=== PATIENT | female | born 1985 | race Caucasian/White ===

== ENCOUNTER 2018-10-09 09:30 | Inpatient (IN) | payer OTHER ==
[2018-10-09] MEDS ORDERED: Calcium Gluc 4.6 MEQ/10 ML (100 MG/ML) SLOW IVP PRN (13:03)
[2018-10-09] MEDS ORDERED: Ibuprofen 800 MG TAB PO PRN (13:03)
[2018-10-09] MEDS ORDERED: Meperidine HCl/PF 25 MG/ML VIAL IM/IV PRN (13:03)
[2018-10-09] MEDS ORDERED: HYDROcodone/Acetaminophen 5/325 mg Tablet PO PRN (13:03)
[2018-10-09] MEDS ORDERED: Acetaminophen 500 MG TAB PO PRN (13:03)
[2018-10-09] MEDS ORDERED: Methylergonovine 0.2 MG/ML VIAL IM PRN (13:03)
[2018-10-09] MEDS ORDERED: Butorphanol Tartrate 1 MG/ML VIAL SLOW IVP PRN (13:03)
[2018-10-09] MEDS ORDERED: Promethazine HCl 25 MG/ML VIAL IM PRN (13:03)
[2018-10-09] MEDS ORDERED: Ondansetron PF 4 MG/2 ML Vial IVP PRN (13:03)
[2018-10-09] MEDS ORDERED: Lidocaine 1% (PF) 30 ML VIAL SC PRN (13:03)
[2018-10-09] MEDS ORDERED: Carboprost 250 MCG/ML AMP IM PRN (13:03)
[2018-10-09] MEDS ORDERED: Misoprostol 200 MCG TAB PR PRN (13:03)
[2018-10-09] MEDS ORDERED: Magnesium Sulfate 20 GM/WATER 500 ML BAG IVPB SCH (13:15)
[2018-10-09 13:18] VITALS: BMI 30.4
[2018-10-09] MEDS: Lactated Ringer's 1,000 ML IV SCH ×2 (13:20→22:05)
[2018-10-09] MEDS: Labetalol HCl 100 MG/20 ML VIAL SLOW IVP PRN ×2 (13:51→17:04)
[2018-10-09] MEDS: Magnesium Sulfate 20 gm/500 ml 20 GM/500 ML BAG IVPB SCH ×2 (13:51→22:05)
[2018-10-09 13:53] LABS: Hemoglobin 13.6 g/dL (12.0-16.0); Mean Corpuscular HGB CONC 34.1 g/dL (32.0-36.0); Mean Corpuscular Hemoglobin 29.5 pg (27.0-31.0); Mean Corpuscular Volume 86.7 fL (78.0-98.0); Mean Platelet Volume 11.7 fL (7.4-10.4); Platelet Count 129 thou/uL (130-400); RBC Distribution Width 11.7 % (11.5-14.5); Red Blood Cell (RBC) Count 4.62 mill/uL (4.20-5.40); White Blood Cell (WBC) Count 13.2 thou/uL (4.8-10.8)
[2018-10-09 14:01] LABS: ALT (SGPT) 35 U/L (8-55); AST (SGOT) 29 U/L (5-34); Albumin 3.1 g/dL (3.5-5.0); Alkaline Phosphatase 253 U/L (40-150); Anion Gap 13 mmol/L (10-20); BUN (Urea Nitrogen) 9 mg/dL (7.0-18.7); Bilirubin, Total 0.4 mg/dL (0.2-1.2); Calc. Creatinine Clearance 158 mL/min (70-130); Calcium 8.6 mg/dL (7.8-10.44); Carbon Dioxide 21 mmol/L (22-29); Chloride 103 mmol/L (98-107); Estimated GFR-MDRD Greater than 90; Globulin 2.6 g/dL (2.4-3.5); Glucose 97 mg/dL (70-105); Potassium 3.9 mmol/L (3.5-5.1); Protein, Total 5.7 g/dL (6.0-8.3); Sodium 133 mmol/L (136-145)
[2018-10-09 14:18] LABS: Syphilis Antibody Nonreactive (Nonreactive); Syphilis Antibody Index 0.02 S/CO (<1.00 Non-Reactive)
[2018-10-09 14:34] LABS: HBSAg Index 0.24 S/CO (0-0.99); Hep B Surf Ag Non-Reactive S/CO (NonReactive)
[2018-10-09] MEDS ORDERED: hydrALAZINE 20 MG/ML VIAL ONE (17:38)
[2018-10-09] MEDS ORDERED: hydrALAZINE 20 MG/ML VIAL SLOW IVP SCH (18:15)
[2018-10-10] MEDS ORDERED: Lidocaine 1% (PF) 30 ML VIAL ONE (00:09)
[2018-10-10] MEDS: hydrALAZINE 20 MG/ML VIAL SLOW IVP PRN ×2 (01:25→21:00)
[2018-10-10] MEDS ORDERED: Fentanyl 4 mcg/Bup 0.1% Cadd 100 ML ONE ×4 (03:03→21:29)
[2018-10-10] MEDS: NS w/ Oxytocin 10 units 500 ML IV SCH ×2 (03:31→12:54)
[2018-10-10] MEDS ORDERED: Naloxone HCl 0.4 mg/ml Vial IVP PRN ×2 (03:53)
[2018-10-10] MEDS ORDERED: Lactated Ringer's 500 ML IV PRN (03:53)
[2018-10-10] MEDS ORDERED: Hydrocerin (Eucerin) Cream 120 gm Jar TOP PRN (03:53)
[2018-10-10] MEDS ORDERED: Ondansetron PF 4 MG/2 ML Vial IVP PRN (03:53)
[2018-10-10] MEDS ORDERED: diphenhydrAMINE 50 MG/ML VIAL IVP PRN (03:53)
[2018-10-10] MEDS ORDERED: ePHEDrine/0.9% NaCl/PF SYRINGE 50 mg/10 ml SLOW IVP PRN (03:53)
[2018-10-10] MEDS ORDERED: Promethazine HCl 25 MG/ML VIAL IM PRN (03:53)
[2018-10-10] MEDS: Lactated Ringer's 1,000 ML IV SCH ×2 (03:58→17:05)
[2018-10-10] MEDS ORDERED: Communication Order-Pharmacy FS SCH (04:00)
[2018-10-10] MEDS: Acetaminophen 325 MG TAB PO PRN ×2 (06:54→15:36)
[2018-10-10] MEDS: Magnesium Sulfate 20 gm/500 ml 20 GM/500 ML BAG IVPB SCH ×2 (07:56→17:05)
[2018-10-10] MEDS: Fentanyl 4 mcg/Bupivacaine 0.1% Cassette 100 ML EPIDURAL SCH ×2 (10:25→16:37)
--- NOTE | 2018-10-10 14:26 | PDOC.LDPN ---
Labor & Delivery Progress Note - Subjective Subjective: comfortable - Objective Vital signs reviewed and normal: yes General: NAD, resting Uterine fundus: non tender Dilation: 6 Effacement: 75% Station: -1 FHT: category 1 [place] contractions every: 2-6 minutes - Assessment (1) Severe pre-eclampsia Code(s): O14.10 - SEVERE PRE-ECLAMPSIA, UNSPECIFIED TRIMESTER Current Visit: Yes Status: Acute (2) Term Code(s): Z34.80 - ENCOUNTER FOR SUPRVSN OF NORMAL , UNSP TRIMESTER Current Visit: Yes Status: Acute Plan: continue plan of care (Doing well on magnesium. BP better after labetolol and hydralazine yesterday. EPidural in place. Continue iOL with Pitocin for severe preeclamsia.)
[2018-10-10] MEDS ORDERED: Fentanyl 100 MCG/2 ML VIAL ONE (17:42)
[2018-10-10] MEDS: Labetalol HCl 100 MG/20 ML VIAL SLOW IVP PRN (22:33)
[2018-10-11] MEDS ORDERED: Fentanyl 4 mcg/Bup 0.1% Cadd 100 ML ONE ×2 (01:50→09:34)
[2018-10-11] MEDS: Dextrose 5%-Lactated Ringers 1,000 ML IV SCH (02:53)
[2018-10-11] MEDS: hydrALAZINE 20 MG/ML VIAL SLOW IVP PRN (05:33)
[2018-10-11] MEDS: Labetalol HCl 100 MG/20 ML VIAL SLOW IVP PRN (05:44)
[2018-10-11] MEDS: NS w/ Oxytocin 10 units 500 ML IV SCH (06:40)
[2018-10-11] MEDS ORDERED: Misoprostol 200 MCG TAB ONE (07:14)
[2018-10-11] MEDS ORDERED: Carboprost 250 MCG/ML AMP ONE (07:14)
[2018-10-11] MEDS: NS / Oxytocin 40 units/1000ml 1,000 ML IV PRN ×2 (09:18→15:03)
[2018-10-11] MEDS: Fentanyl 4 mcg/Bupivacaine 0.1% Cassette 100 ML EPIDURAL SCH (09:55)
[2018-10-11 09:56] LABS: Actual Bicarbonate (HCO3a) 25.7 mEq/L (22-28); Base Excess (BEa) -2.7 mEq/L (-2.0 to +3.0)
[2018-10-11] MEDS ORDERED: Lanolin Ointment 7 GM TUBE TOP PRN (12:28)
[2018-10-11] MEDS ORDERED: Measles/Mumps/Rubella 10 MCG/0.5 ML VIAL SC ONE (12:28)
[2018-10-11] MEDS ORDERED: HYDROcodone/Acetaminophen 5/325 mg Tablet PO PRN ×2 (12:28)
[2018-10-11] MEDS ORDERED: Milk Of Magnesia 30 ML UDCUP PO PRN (12:28)
[2018-10-11] MEDS ORDERED: Preparation H Ointment 28 GM TUBE PR PRN (12:28)
[2018-10-11] MEDS ORDERED: Calcium Gluconate 4.6 MEQ in Sodium Chloride 0.9% 100 ML IVPB PRN (12:28)
[2018-10-11] MEDS ORDERED: Bisacodyl 10 MG SUPP PR PRN (12:28)
[2018-10-11] MEDS ORDERED: NS / Oxytocin 40 units/1000ml 1,000 ML IV SCH (12:30)
[2018-10-11] MEDS ORDERED: Magnesium Sulfate 20 GM/WATER 500 ML BAG IVPB SCH (12:30)
[2018-10-11 13:22] LABS: Hemoglobin 11.2 g/dL (12.0-16.0)
[2018-10-11] MEDS ORDERED: Ampicillin/Sulbactam 3 GM in Sodium Chloride 0.9% 100 ML IVPB SCH (13:45)
[2018-10-11 14:31] LABS: Albumin 2.1 g/dL (3.5-5.0)
[2018-10-11 14:32] LABS: Chloride 99 mmol/L (98-107); Potassium 3.6 mmol/L (3.5-5.1); Sodium 126 mmol/L (136-145)
[2018-10-11 14:33] LABS: Calcium 6.5 mg/dL (7.8-10.44); Glucose 116 mg/dL (70-105)
[2018-10-11 14:34] LABS: Globulin 2.3 g/dL (2.4-3.5); Protein, Total 4.4 g/dL (6.0-8.3)
[2018-10-11 14:35] LABS: Anion Gap 10 mmol/L (10-20); Bilirubin, Total 0.5 mg/dL (0.2-1.2); Carbon Dioxide 21 mmol/L (22-29)
[2018-10-11 14:36] LABS: Alkaline Phosphatase 182 U/L (40-150)
[2018-10-11 14:37] LABS: Calc. Creatinine Clearance 148 mL/min (70-130); Estimated GFR-MDRD 85
[2018-10-11 14:38] LABS: BUN (Urea Nitrogen) 8 mg/dL (7.0-18.7)
[2018-10-11 14:39] LABS: ALT (SGPT) 20 U/L (8-55); AST (SGOT) 28 U/L (5-34)
[2018-10-11] MEDS: Magnesium Sulfate 20 gm/500 ml 20 GM/500 ML BAG IVPB SCH (15:03)
[2018-10-11] MEDS: Ibuprofen 800 MG TAB PO SCH ×2 (15:09→21:35)
[2018-10-11] MEDS ORDERED: Benzocaine/Menthol 20-0.5% 60 ML CAN TOP PRN (16:48)
--- NOTE | 2018-10-11 21:06 | DN ---
DATE OF PROCEDURE: 10/11/2018 DATE OF DELIVERY: 10/11/2018 PREOPERATIVE DIAGNOSES: 1. 40-week intrauterine . 2. Severe preeclampsia. 3. Prolonged second stage of labor. 4. Primigravida. POSTOPERATIVE DIAGNOSES: 1. 40-week intrauterine . 2. Severe preeclampsia. 3. Prolonged second stage of labor. 4. Primigravida. 5. Second-degree perineal laceration. 6. hemorrhage. PROCEDURES PERFORMED: 1. Vacuum-assisted vaginal delivery. 2. Manual extraction of the placenta. 3. Laceration repair. 4. Management of hemorrhage. HEALTH INFORMATION DIRECTOR SURGEON: Kristie Denton MD ANESTHESIA: Epidural and local. ESTIMATED BLOOD LOSS: 1540 mL. SPECIMENS REMOVED: Include cord blood and cord gases. BRIEF DELIVERY SUMMARY: This is a 33-year-old G1, now P1, who presented on 10/09 with severe preeclampsia. Blood pressure in the 200s/110s. She responded well to labetalol and hydralazine and was started on magnesium, after which time her blood pressure stabilized. She was started on Pitocin for induction of labor and well-being throughout the labor course was reassuring. She did have slow progress from about 6 cm to complete, but she did become completely dilated on the morning of 10/11/2018. It is notable that Dr. Samuels was involved in her care as well overnight on the to the . Please see his notes for the details of his involvement. She progressed to complete and pushing. She pushed for 3 hours, at which time, the decision was made to place a vacuum for the indication of maternal exhaustion, again well-being at this time was reassuring with the heart rate in the 125. The vacuum was placed without incident and suction was taken into the yellow zone. With the next contraction, suction was taken into the green zone and downward traction was applied with advancement of the head. However, towards the end of that first contraction, suction was lost. There was no pop-off, but the seal against the baby's head was lost and the vacuum was replaced. With the second contraction, there was continued advancement of the head, but there was a pop-off. Again, the vacuum was replaced and 2 more contractions were needed for delivery of the vertex. During that time, Dr. Kristie Denton was called in to assist. After the 4th contraction, there was successful delivery of the vertex and the vacuum was promptly removed. There was a nuchal cord x1, which was loose and was reduced prior to delivery of the shoulders. Shoulders and body easily followed and the umbilical cord was doubly clamped and cut and the patient was handed to the awaiting Neonatology Team. Please see their notes for details of their resuscitation. Infant's Apgars were 2, 5, and 7. Attention was then turned back to mom and repair was began on a second-degree perineal laceration. This was repaired in standard running fashion using 2-0 Vicryl suture under local and epidural anesthesia with excellent hemostasis. There was a gush of blood at that time and attention was then turned to the placenta. As the placenta was delivering, the cord from the placenta and the placenta had been manually extracted with trailing membranes, but with significant bleeding. She was given Hemabate x1 and Cytotec 800 mcg to assist with vaginal bleeding. This combination of medications plus bimanual massage and Pitocin hanging in her IV resulted in an improvement in uterine tone and bleeding. Total quantitative blood loss was 1548 mL. Mom was stable after this point in time, but we will repeat a hemoglobin and additional preeclamptic labs later this afternoon. Baby was taken to the NICU. Please see their notes for the details. Job ID: [id number]
[2018-10-11] MEDS: Docusate Calcium (SURFAK) 240 MG CAP PO SCH (21:30)
[2018-10-12] MEDS: Magnesium Sulfate 20 gm/500 ml 20 GM/500 ML BAG IVPB SCH (01:07)
[2018-10-12 06:29] LABS: Hemoglobin 8.9 g/dL (12.0-16.0); Mean Corpuscular HGB CONC 34.4 g/dL (32.0-36.0); Mean Corpuscular Hemoglobin 30.7 pg (27.0-31.0); Mean Corpuscular Volume 89.2 fL (78.0-98.0); Mean Platelet Volume 10.8 fL (7.4-10.4); Platelet Count 123 thou/uL (130-400); Red Blood Cell (RBC) Count 2.89 mill/uL (4.20-5.40); White Blood Cell (WBC) Count 23.7 thou/uL (4.8-10.8)
[2018-10-12] MEDS: Ibuprofen 800 MG TAB PO SCH ×4 (06:30→21:41)
[2018-10-12] MEDS: Dextrose 5%-Lactated Ringers 1,000 ML IV SCH ×3 (08:50→17:02)
[2018-10-12] MEDS: Ferrous Sulfate 325 MG TAB PO SCH ×3 (08:50→16:09)
[2018-10-12] MEDS: Docusate Calcium (SURFAK) 240 MG CAP PO SCH ×2 (09:33→21:41)
[2018-10-12] MEDS ORDERED: Bupivacaine/Epinephrine 0.25% 30 ML VIAL ONE (11:11)
[2018-10-12] MEDS ORDERED: Lidocaine 2% MPF 10 ML AMP (For Epidural Use) ONE (11:11)
[2018-10-12] MEDS ORDERED: ePHEDrine/0.9% NaCl/PF SYRINGE 50 mg/10 ml ONE (11:11)
[2018-10-12] MEDS: NS w/ Oxytocin 10 units 500 ML IV SCH (14:33)
[2018-10-12] MEDS: Lactated Ringer's 1,000 ML IV SCH (14:48)
--- NOTE | 2018-10-12 22:25 | PDOC.PP ---
Post Progress Note Post Day #: 1 Subjective: DOing better. Off magnesium. Feeling well. Pain minimal. No dizziness or lightheadedness. Would like to shower. PO intake tolerated: yes Flatus: yes Ambulation: yes Vital Signs (12 hours) Temp Pulse Resp BP Pulse Ox 10/12/18 20:00 99.4 F 84 20 144/88 H 98 10/12/18 19:41 98 10/12/18 17:32 90 16 140/80 10/12/18 14:58 98.7 F 100 20 154/88 H 10/12/18 12:00 98 Weight Weight 200 lb - Physical Examination General: NAD Cardiovascular: no m/r/g, RRR Respiratory: clear to auscultation bilaterally, non-labored breathing Abdominal: + bowel sounds, lochia, no distention, appropriately TTP Fundus firm & at: Below umbilicus Extremities: negative homans (B) Neurological: no gross focal deficits Result Diagrams: 10/12/18 05:56 10/11/18 14:07 Additional Labs: Post Labs Blood Type O POSITIVE 10/09/18 13:28 Hep Bs Antigen Non-Reactive S/CO (NonReactive) 10/09/18 13:30 (1) Severe pre-eclampsia Code(s): O14.10 - SEVERE PRE-ECLAMPSIA, UNSPECIFIED TRIMESTER Status: Acute (2) Term Code(s): Z34.80 - ENCOUNTER FOR SUPRVSN OF NORMAL , UNSP TRIMESTER Status: Acute (3) Vaginal delivery Code(s): O80 - ENCOUNTER FOR FULL-TERM UNCOMPLICATED DELIVERY Status: Acute - Assessment/Plan PPD #1 D/C'd Magnesium May move to the floor May shower Hgb 8 after PPH - stable - asymptomatic Baby to come out of NICU today BP improving
[2018-10-13] MEDS: Dextrose 5%-Lactated Ringers 1,000 ML IV SCH ×2 (03:09→11:31)
[2018-10-13] MEDS ORDERED: hydrALAZINE 25 MG TAB PO PRN (04:51)
[2018-10-13] MEDS: Ibuprofen 800 MG TAB PO SCH ×2 (05:26→13:41)
[2018-10-13] MEDS: Ferrous Sulfate 325 MG TAB PO SCH (08:53)
[2018-10-13] MEDS: Docusate Calcium (SURFAK) 240 MG CAP PO SCH (08:53)
--- NOTE | 2018-10-13 09:41 | PDOC.PP ---
Post Progress Note Post Day #: 2 Subjective: Doing well. baby in room overnight. Brestfeeding well. NO TOMAS, No RUQ pain. PO intake tolerated: yes Flatus: yes Ambulation: yes Vital Signs (12 hours) Temp Pulse Resp BP BP Pulse Ox 10/13/18 09:00 98.1 F 89 16 136/83 97 10/13/18 05:29 99 137/70 10/13/18 05:01 79 186/91 H 10/13/18 04:10 79 18 186/91 H 10/13/18 03:45 89 18 167/84 H 10/13/18 00:15 98.4 F 91 17 144/73 H Weight Weight 200 lb - Physical Examination General: NAD Cardiovascular: no m/r/g, RRR Respiratory: clear to auscultation bilaterally, non-labored breathing Abdominal: + bowel sounds, lochia, no distention, appropriately TTP Psychiatric: A&Ox3, normal affect Result Diagrams: 10/12/18 05:56 10/11/18 14:07 Additional Labs: Post Labs Blood Type O POSITIVE 10/09/18 13:28 Hep Bs Antigen Non-Reactive S/CO (NonReactive) 10/09/18 13:30 (1) Severe pre-eclampsia Code(s): O14.10 - SEVERE PRE-ECLAMPSIA, UNSPECIFIED TRIMESTER Status: Acute (2) Term Code(s): Z34.80 - ENCOUNTER FOR SUPRVSN OF NORMAL , UNSP TRIMESTER Status: Acute (3) Vaginal delivery Code(s): O80 - ENCOUNTER FOR FULL-TERM UNCOMPLICATED DELIVERY Status: Acute - Assessment/Plan Lasix 20mg x1 now to promote diuresis. D/C home if BP stable today F/U in few days with baby for BP check.
[2018-10-13] MEDS ORDERED: Furosemide 20 MG TAB PO SCH (10:30)
[2018-10-13] MEDS: NS w/ Oxytocin 10 units 500 ML IV SCH (11:31)
[2018-10-13 12:17] VITALS: TEMP 98.4
[2018-10-13 16:34] VITALS: BP 142/86
== END 2018-10-13 18:00 | disposition home or self-care (01) | DRG 807 ==
LOC: L&D 12:16 → 3SW 10-12 14:32
PROVIDERS: ADMIT Family Medicine; ATTEND Family Medicine
PROC: 3E033VJ Introduction of Other Hormone into Peripheral Vein, Percutaneous Approach (ICD-10-PCS; 2018-10-09)
PROC: 10D07Z6 Extraction of Products of Conception, Vacuum, Via Natural or Artificial Opening (ICD-10-PCS; principal; 2018-10-11)
PROC: 0KQM0ZZ Repair Perineum Muscle, Open Approach (ICD-10-PCS; 2018-10-11)
DX: O14.14 Severe pre-eclampsia complicating childbirth (principal); Z37.0 Single live birth; O72.1 Other immediate postpartum hemorrhage; O63.1 Prolonged second stage (of labor); O70.1 Second degree perineal laceration during delivery; O75.81 Maternal exhaustion complicating labor and delivery; O69.81X0 Labor and delivery complicated by cord around neck, without compression, not applicable or unspecified; Z3A.39 39 weeks gestation of pregnancy
CPT/HCPCS: 36415; 51702; 80053; 82805; 83735; 85014; 85018; 85027; 86780; 86850; 86900; 86901; 87340; 88307; J0295; J0360; J2001; J3010; J3475; J3490; J7050

== ENCOUNTER 2020-10-20 10:36 | Outpatient (CLI) | payer OTHER ==
[2020-10-20 18:28] LABS: SARS-CoV-2 MS2 Positive; SARS-CoV-2 N Gene Negative; SARS-CoV-2 S Gene Negative; SARS-CoV-2 by NAA Not Detected (NotDetected); SARS-CoV-2 orf1ab Negative
== END 2020-10-20 10:37 | disposition home or self-care (01) ==
LOC: LABBT 10:36
PROVIDERS: ATTEND Family Medicine
DX: Z20.828 Contact with and (suspected) exposure to other viral communicable diseases (principal)
CPT/HCPCS: 87635; U0003

== ENCOUNTER 2020-10-22 05:30 | Inpatient (IN) | payer OTHER ==
[2020-10-22] MEDS ORDERED: Acetaminophen 500 MG TAB PO PRN (06:26)
[2020-10-22] MEDS ORDERED: Carboprost 250 MCG/ML AMP IM PRN (06:26)
[2020-10-22] MEDS ORDERED: HYDROcodone/Acetaminophen 5/325 mg Tablet PO PRN (06:26)
[2020-10-22] MEDS ORDERED: Promethazine HCl 25 MG/ML VIAL IM PRN ×2 (06:26→21:30)
[2020-10-22] MEDS ORDERED: Meperidine HCl/PF 25 MG/ML VIAL IM/IV PRN (06:26)
[2020-10-22] MEDS ORDERED: NS / Oxytocin 40 units/1000ml 1,000 ML IV PRN (06:26)
[2020-10-22] MEDS ORDERED: Lidocaine 1% (PF) 30 ML VIAL SC PRN (06:26)
[2020-10-22] MEDS ORDERED: hydrALAZINE 20 MG/ML VIAL SLOW IVP PRN (06:26)
[2020-10-22] MEDS ORDERED: Ibuprofen 800 MG TAB PO PRN (06:26)
[2020-10-22] MEDS ORDERED: Ondansetron PF 4 MG/2 ML Vial IVP PRN ×2 (06:26→21:30)
[2020-10-22] MEDS ORDERED: Butorphanol Tartrate 1 MG/ML VIAL SLOW IVP PRN (06:26)
[2020-10-22] MEDS ORDERED: Misoprostol 200 MCG TAB PR PRN (06:26)
[2020-10-22] MEDS ORDERED: Methylergonovine 0.2 MG/ML VIAL IM PRN (06:26)
[2020-10-22 06:35] VITALS: BMI 28.8
[2020-10-22 07:52] LABS: Hemoglobin 13.8 g/dL (12.0-16.0); Mean Corpuscular HGB CONC 33.5 g/dL (32.0-36.0); Mean Corpuscular Hemoglobin 29.6 pg (27.0-31.0); Mean Corpuscular Volume 88.6 fL (78.0-98.0); Mean Platelet Volume 9.6 fL (7.4-10.4); Platelet Count 176 thou/uL (130-400); RBC Distribution Width 12.2 % (11.5-14.5); Red Blood Cell (RBC) Count 4.64 mill/uL (4.20-5.40); White Blood Cell (WBC) Count 13.5 thou/uL (4.8-10.8)
[2020-10-22] MEDS: NS w/ Oxytocin 10 units 500 ML IV SCH (08:03)
[2020-10-22 08:43] LABS: HBSAg Index 0.21 S/CO (0-0.99); Hep B Surf Ag Non-Reactive S/CO (NonReactive); Syphilis Antibody Nonreactive (Nonreactive); Syphilis Antibody Index 0.02 S/CO (<1.00 Non-Reactive)
[2020-10-22] MEDS ORDERED: diphenhydrAMINE 50 MG/ML VIAL ONE (12:38)
--- NOTE | 2020-10-22 12:40 | PDOC.LDHP ---
Labor and Delivery H&P Chief complaint: scheduled induction HPI: 35 yo with a h/o severe preeclampsia with her first now at 39 weeks. This has been uncomplicated. We discussed options and agreed with IOL to avoid the development of preeclampsia this time. Here for pitocin IOL. Current gestational age (weeks): 39 Due date: 10/28/20 Dating criteria: first trimester ultrasound Grav: 2 Para: 1 Current complications: none Abnormal US findings: No Past Medical History: Severe preeclampsia in first Current medications: pre- vitamins Previous surgical history: none Allergies/Adverse Reactions: Allergies Allergy/AdvReac Type Severity Reaction Status Date / Time No Known Allergies Allergy Verified 10/22/20 06:29 Social history: none - Physical Exam Vital signs reviewed and normal: yes General: NAD, breathing through contractions Heart: RRR Lungs: CTAB Abdomen: gravid Extremeties: no edema FHT: category 1, variability present - Vaginal Exam cm dilated: 3 Effacement: 50% Station: -2 - OB Labs Blood type: O RH: positive Antibody Screen: negative HIV: negative RPR: negative HEPSAg: negative 1 hour GCT: negative GBS: negative Rubella: immune - Assessment L&D Assessment: medically indicated induction - Plan Plan: admit to L&D, labor augmentation if indicated, anesthesia consult for pain management (Routine pitocin induction. FHT category I.)
[2020-10-22] MEDS ORDERED: diphenhydrAMINE 50 MG/ML VIAL IVP SCH (14:45)
--- NOTE | 2020-10-22 16:30 | PDOC.EVN ---
Event Note - Event Note Event Note: Came to bedside to check patient. FHT category I. CTX every 2 minutes. Pitocin on 9mu. AROM with clear fluid without complications. Continue current management.
[2020-10-22] MEDS ORDERED: DISCONTINUE ALL PREVIOUS NARCOTICS FS SCH (21:00)
[2020-10-22] MEDS ORDERED: Bupivacaine 0.5% 20 ML, fentaNYL Citrate/PF 400 MCG in Sodium Chloride 0.9% 72 ML EPIDURAL SCH (21:00)
[2020-10-22] MEDS ORDERED: Acetaminophen 325 MG TAB PO PRN (21:30)
[2020-10-22] MEDS ORDERED: diphenhydrAMINE 50 MG/ML VIAL IVP PRN (21:30)
[2020-10-22] MEDS ORDERED: Naloxone HCl 0.4 mg/ml Vial IVP PRN ×2 (21:30)
[2020-10-22] MEDS ORDERED: Communication Order-Pharmacy FS SCH (21:30)
[2020-10-22] MEDS ORDERED: ePHEDrine 50 MG/ML VIAL SLOW IVP PRN (21:30)
[2020-10-22] MEDS ORDERED: Fentanyl 4 mcg/Bupivacaine 0.1% Cassette 100 ML EPIDURAL SCH (21:30)
[2020-10-22] MEDS ORDERED: Lactated Ringer's 500 ML IV PRN (21:30)
[2020-10-22] MEDS: NS / Oxytocin 40 units/1000ml 1,000 ML IV SCH (23:52)
--- NOTE | 2020-10-23 00:31 | PDOC.OPDEL ---
OB Operative/Delivery Note Delivery Dr/Surgeon: Dimas Pre-Delivery Diagnosis: medically indicated induction Procedure/Post Delivery Dx: spontaneous vaginal delivery (Head OA, mouth and nares bulb suctioned, loose nuchal cord that was reduced prior to the shoulders, shoulders and body easily followed. Infant placed on mother's abdomen.) Weeks gestation: 39 Anesthesia: epidural - Findings A Sex: female - 1 min: 9 - 5 min: 9 - Additional Findings/Plan Placenta delivered: spontaneous (Intact, 3 vessel cord) Repaired Obstetrical Laceration: 2nd degree (Small 2nd degree lac to the left posterior vaginal wall/perineum. This had very brisk bleeding. Repair was with 2.0 vicryl in running locked fashion. Still with significant oozing. Laceration oversown with running locked suture in a second layer and one figure of eight - good hemostasis. EBL 1200ml) Estimated blood loss: QBL post-placenta: 650ml EBL from laceration: 1200ml Total: 1850 Post delivery plan: routine recovery
[2020-10-23] MEDS ORDERED: Milk Of Magnesia 30 ML UDCUP PO PRN (00:38)
[2020-10-23] MEDS ORDERED: diphenhydrAMINE 25 MG CAP PO PRN (00:38)
[2020-10-23] MEDS ORDERED: Bisacodyl 10 MG SUPP PR PRN (00:38)
[2020-10-23] MEDS ORDERED: hydrALAZINE 20 MG/ML VIAL SLOW IVP PRN (00:38)
[2020-10-23] MEDS ORDERED: Lanolin Ointment 7 GM TUBE TOP PRN (00:38)
[2020-10-23] MEDS: NS / Oxytocin 40 units/1000ml 1,000 ML IV SCH (01:57)
[2020-10-23] MEDS: Ibuprofen 800 MG TAB PO SCH ×3 (03:32→20:09)
[2020-10-23] MEDS: NS w/ Oxytocin 10 units 500 ML IV SCH (04:36)
[2020-10-23 07:12] LABS: Hemoglobin 9.1 g/dL (12.0-16.0); Mean Corpuscular HGB CONC 34.7 g/dL (32.0-36.0); Mean Corpuscular Hemoglobin 31.2 pg (27.0-31.0); Mean Corpuscular Volume 90.1 fL (78.0-98.0); Mean Platelet Volume 9.3 fL (7.4-10.4); Platelet Count 136 thou/uL (130-400); White Blood Cell (WBC) Count 23.3 thou/uL (4.8-10.8)
[2020-10-23] MEDS: Docusate Calcium (SURFAK) 240 MG CAP PO SCH ×2 (08:21→20:08)
[2020-10-23] MEDS: Ferrous Sulfate 325 MG TAB PO SCH ×2 (08:21→16:20)
[2020-10-23] MEDS: HYDROcodone/Acetaminophen 5/325 mg Tablet PO PRN ×4 (08:22→22:49)
[2020-10-23] MEDS ORDERED: Adacel (T-DAP) 0.5 ML SYRINGE IM ONE (09:00)
--- NOTE | 2020-10-23 15:36 | PDOC.PP ---
Post Progress Note Post Day #: 1 Subjective: Feeling well. Slept well overnight. going OK. She did get up to the restroom once and felt a little lightheaded but has not been up again. PO intake tolerated: yes Flatus: yes Ambulation: yes Vital Signs (12 hours) Temp Pulse Resp BP 10/23/20 12:00 98.6 F 62 16 113/72 10/23/20 04:25 98.8 F 79 16 107/53 L Weight Weight 190 lb - Physical Examination General: NAD Cardiovascular: no m/r/g, RRR Respiratory: clear to auscultation bilaterally, non-labored breathing Abdominal: + bowel sounds, lochia, no distention, appropriately TTP Extremities: negative homans (B) Neurological: no gross focal deficits Psychiatric: A&Ox3 Result Diagrams: 10/23/20 06:34 Additional Labs: Post Labs Hep Bs Antigen Non-Reactive S/CO (NonReactive) 10/22/20 07:45 Blood Type O POSITIVE 10/22/20 07:45 (1) Intrapartum hemorrhage Code(s): O67.9 - INTRAPARTUM HEMORRHAGE, UNSPECIFIED Status: Acute (2) Second degree perineal laceration during delivery Code(s): O70.1 - SECOND DEGREE PERINEAL LACERATION DURING DELIVERY Status: Acute (3) Term Code(s): Z34.80 - ENCOUNTER FOR SUPRVSN OF NORMAL , UNSP TRIMESTER Status: Acute (4) Vaginal delivery Code(s): O80 - ENCOUNTER FOR FULL-TERM UNCOMPLICATED DELIVERY Status: Acute - Assessment/Plan 1. Routine PP care 2. Hgb 9 from 13 this AM after bleeding from laceration at delivery 3. Continue to work on 4. Plan home tomorrow AM if feeling well
[2020-10-24] MEDS: Ibuprofen 800 MG TAB PO SCH (04:59)
--- NOTE | 2020-10-24 07:33 | PDOC.PP ---
Post Progress Note Post Day #: 2 Subjective: Pt reports doing well lochia amount of light period bonding well with infant plans to breast feed, states she thinks breast feeding has improved this morning pain well controlled. PO intake tolerated: yes Flatus: yes Ambulation: yes Vital Signs (12 hours) Temp Pulse Resp BP Pulse Ox 10/23/20 20:17 98.0 F 80 18 116/55 L 98 10/23/20 20:00 98 Weight Weight 86.183 kg - Physical Examination General: NAD Cardiovascular: no m/r/g, RRR Respiratory: clear to auscultation bilaterally, non-labored breathing Abdominal: + bowel sounds, lochia, no distention, appropriately TTP Skin: no rash Neurological: no gross focal deficits Psychiatric: A&Ox3, normal affect Result Diagrams: 10/23/20 06:34 Additional Labs: Post Labs Hep Bs Antigen Non-Reactive S/CO (NonReactive) 10/22/20 07:45 Blood Type O POSITIVE 10/22/20 07:45 - Assessment/Plan PP day #2 from 1. Routine PP care 2. Hgb 9 from 13 AM after delivery with QBL 763 total. continue PO iron for 6 weeks. Rx sent. 3. Continue to work on breast feeding, starting to feed better this morning. Dispo: plan d/c home today. r/u with Dr. Cochran in 2 [address] plan with Dr[address] Samuels, Laborist, who is in agreement with d/c plan.
[2020-10-24] MEDS: Ferrous Sulfate 325 MG TAB PO SCH (09:12)
[2020-10-24] MEDS: Docusate Calcium (SURFAK) 240 MG CAP PO SCH (09:12)
[2020-10-24 11:18] VITALS: BP 112/61; TEMP 97.8
[2020-10-24] MEDS ORDERED: Benzocaine-Menthol 82.5 ML CAN TOP PRN (11:28)
== END 2020-10-24 12:40 | disposition home or self-care (01) | DRG 807 ==
LOC: L&D 05:53 → 3SW 10-23 03:35
PROVIDERS: ADMIT Family Medicine; ATTEND Family Medicine
PROC: 10E0XZZ Delivery of Products of Conception, External Approach (ICD-10-PCS; principal; 2020-10-22)
PROC: 0KQM0ZZ Repair Perineum Muscle, Open Approach (ICD-10-PCS; 2020-10-22)
PROC: 10907ZC Drainage of Amniotic Fluid, Therapeutic from Products of Conception, Via Natural or Artificial Opening (ICD-10-PCS; 2020-10-22)
PROC: 3E033VJ Introduction of Other Hormone into Peripheral Vein, Percutaneous Approach (ICD-10-PCS; 2020-10-22)
DX: O67.9 Intrapartum hemorrhage, unspecified (principal); Z37.0 Single live birth; O69.81X0 Labor and delivery complicated by cord around neck, without compression, not applicable or unspecified; O70.1 Second degree perineal laceration during delivery; Z3A.39 39 weeks gestation of pregnancy
CPT/HCPCS: 36415; 51702; 85027; 86780; 86850; 86900; 86901; 87340; J1200; J2590; J3010; J3490